=== PATIENT | male | born 1985 | race Caucasian/White ===

== ENCOUNTER 2019-11-19 15:21 | Emergency (ER) | payer OTHER ==
--- NOTE | 2019-11-19 16:35 | CT ---
CT abdomen and pelvis Technique: Multiple axial sections were obtained from above the dome of the diaphragm inferiorly through the pubic symphysis. Intravenous and oral contrast not utilized. Study has been performed as a ureteral stone protocol. Comparison: No prior abdominal imaging. Findings: Kidneys show no abnormal calcifications. No ureteral dilatation or ureteral stone is seen. No bladder calculi are seen. Other findings: Visualized lung bases show nothing acute. Noncontrast appearance of the liver and spleen appears within normal limits. Gallbladder contains no calcified gallstones. Adrenal glands show no nodule. No discrete abnormality is appreciated within the pancreas. Aorta shows no aneurysm. No retroperitoneal adenopathy or mesenteric abnormalities are seen. No pelvic mass or adenopathy is seen. Appendix not visualized with surgical material seen off the cecum. No free fluid or inflammatory change is seen. Bone window settings were reviewed which appear within normal limits for the patient's age. Impression: 1. No renal calculi, ureteral stone or ureteral dilatation. 2. Other portions of the noncontrast CT study of the abdomen and pelvis appears unremarkable. Nothing acute is appreciated. Diagnostic code #1 Study was dictated in [place] Standard Time
[2019-11-19] MEDS ORDERED: Sodium Chloride 0.9% 1,000 ML IV ONE (17:28)
[2019-11-19] MEDS ORDERED: Sodium Chloride 0.9% 10 ML Syringe FLUSH PRN (17:28)
--- NOTE | 2019-11-19 18:01 | EDM.PDOC ---
ED HPI GENERAL MEDICAL PROBLEM - General Chief Complaint: Flank Pain Stated Complaint: FLANK PAIN/VOMITING BLOOD Time Seen by Provider: 11/19/19 15:32 Source of Information: Reports: Patient History Limitations: Reports: No Limitations - History of Present Illness INITIAL COMMENTS - FREE TEXT/NARRATIVE: The patient presents with bilateral flank pain and nausea. This has been going on for a few days. He has not been wanting to eat and had no energy. He also had a fever a few days ago. He had left flank pain first and then right flank pain now. He has has no cough, sore throat, ear pain, chest pain, or shortness of breath. He has no abdominal pain. He has no dysuria or hematuria but his urine is darker. He has not been around anyone who is sick like this. Onset: Gradual Duration: Day(s): Location: Reports: Back Quality: Reports: Sharp Severity: Moderate Improves with: Reports: None Worsens with: Reports: None Associated Symptoms: Reports: Nausea/Vomiting. Denies: Cough, Fever/Chills, Headaches, Shortness of Breath Bilateral Flank Pain Score (Numeric/FACES): 8 - Related Data Allergies Allergy/AdvReac Type Severity Reaction Status Date / Time No Known Allergies Allergy Verified 11/19/19 15:34 Home Meds: Home Meds Vortioxetine Hydrobromide [Brintellix] 10 mg PO DAILY 11/19/19 [History] Past Medical History - Past Health History Medical/Surgical History: Denies Medical/Surgical History Social & Family History - Tobacco Use Smoking Status *Q: Never Smoker - Recreational Drug Use Recreational Drug Use: No ED ROS GENERAL - Review of Systems Review Of Systems: See Below Constitutional: Reports: Malaise, Weakness, Fatigue. Denies: Fever, Chills HEENT: Reports: No Symptoms Respiratory: Reports: No Symptoms Cardiovascular: Reports: No Symptoms Endocrine: Reports: No Symptoms GI/Abdominal: Reports: Nausea. Denies: Abdominal Pain, Diarrhea, Vomiting : Reports: Flank Pain (bilateral) ED EXAM, GI/ABD - Physical Exam Exam: See Below Exam Limited By: No Limitations General Appearance: Alert, No Apparent Distress Ears: Normal External Exam Nose: Normal Inspection Head: Atraumatic, Normocephalic Neck: Normal Inspection Respiratory/Chest: No Respiratory Distress, Lungs Clear, Normal Breath Sounds Cardiovascular: Regular Rate, Rhythm, No Edema, No Murmur GI/Abdominal Exam: Soft, Non-Tender, No Organomegaly, No Mass Back Exam: No: CVA Tenderness (L), CVA Tenderness (R) Course - Vital Signs Last Recorded V/S: Last Vital Signs Temp 97.8 F 11/19/19 15:31 Pulse 62 11/19/19 15:31 Resp 16 11/19/19 15:31 BP 140/83 11/19/19 15:31 Pulse Ox 99 11/19/19 15:31 - Orders/Labs/Meds Orders: Active Orders 24 hr Category Date Time Status Peripheral IV Care [RC] . DIRECTED Care 11/19/19 17:28 Active Sodium Chloride 0.9% [Normal Saline] 1,000 ml Med 11/19/19 17:28 Active IV ONETIME Sodium Chloride 0.9% [Saline Flush] Med 11/19/19 17:28 Active 10 ml FLUSH ASDIRECTED PRN Peripheral IV Insertion Adult [OM.PC] Routine Oth 11/19/19 17:28 Ordered Medication Orders Sodium Chloride (Normal Saline) 1,000 mls @ 1,000 mls/hr IV ONETIME ONE Stop: 11/19/19 18:27 Last Admin: 11/19/19 17:35 Dose: 1,000 mls/hr Sodium Chloride (Saline Flush) 10 ml FLUSH ASDIRECTED PRN PRN Reason: Keep Vein Open Last Admin: 11/19/19 17:52 Dose: 10 ml Labs: Laboratory Tests 11/19/19 11/19/19 11/19/19 Range/Units 15:47 16:00 16:00 WBC 8.56 (4.23-9.07) K/mm3 RBC 4.84 (4.63-6.08) M/mm3 Hgb 14.5 (13.7-17.5) gm/dl Hct 41.5 (40.1-51.0) % MCV 85.7 (79.0-92.2) fl MCH 30.0 (25.7-32.2) pg MCHC 34.9 (32.2-35.5) g/dl RDW Std Deviation 38.5 (35.1-43.9) fL Plt Count 166 (163-337) K/mm3 MPV 9.7 (9.4-12.3) fl Neut % (Auto) 56.1 (34.0-67.9) % Lymph % (Auto) 31.0 (21.8-53.1) % [place] % (Auto) 11.3 (5.3-12.2) % Eos % (Auto) 1.1 (0.8-7.0) Baso % (Auto) 0.1 (0.1-1.2) % Neut # (Auto) 4.81 (1.78-5.38) K/mm3 Lymph # (Auto) 2.65 (1.32-3.57) K/mm3 [place] # (Auto) 0.97 H (0.30-0.82) K/mm3 Eos # (Auto) 0.09 (0.04-0.54) K/mm3 Baso # (Auto) 0.01 (0.01-0.08) K/mm3 Sodium 142 (136-145) mEq/L Potassium 4.0 (3.5-5.1) mEq/L Chloride 105 (98-107) mEq/L Carbon Dioxide 28 (21-32) mEq/L Anion Gap 13.0 (5-15) BUN 30 H (7-18) mg/dL Creatinine 2.0 H (0.7-1.3) mg/dL Est Cr Clr Drug Dosing 52.72 mL/min Estimated GFR (MDRD) 38 (>60) mL/min BUN/Creatinine Ratio 15.0 (14-18) Glucose 96 (74-106) mg/dL Calcium 8.8 (8.5-10.1) mg/dL Total Bilirubin 0.7 (0.2-1.0) mg/dL AST 21 (15-37) U/L ALT 46 (16-63) U/L Alkaline Phosphatase 79 (46-116) U/L Total Protein 6.9 (6.4-8.2) g/dl Albumin 3.8 (3.4-5.0) g/dl Globulin 3.1 gm/dL Albumin/Globulin Ratio 1.2 (1-2) Lipase 180 (73-393) U/L Urine Color Yellow (Yellow) Urine Appearance Clear (Clear) Urine pH 6.0 (5.0-8.0) Ur Specific [place] 1.015 (1.005-1.030) Urine Protein 2+ H (Negative) Urine Glucose (UA) Negative (Negative) Urine Ketones Negative (Negative) Urine Occult Blood 1+ H (Negative) Urine Nitrite Negative (Negative) Urine Bilirubin Negative (Negative) Urine Urobilinogen 0.2 (0.2-1.0) Ur Leukocyte Esterase Negative (Negative) Urine RBC 0-5 (0-5) /hpf Urine WBC 0-5 (0-5) /hpf Ur Squamous Epith Cells 0-5 (0-5) /hpf Urine Bacteria Moderate H (FEW) /hpf Urine Mucus Not seen (FEW) /hpf Meds: Medications Generic Name Dose Route Start Last Admin Trade Name Freq PRN Reason Stop Dose Admin Sodium Chloride 1,000 mls @ 1,000 mls/hr 11/19/19 17:28 11/19/19 17:35 Normal Saline IV 11/19/19 18:27 1,000 mls/hr ONETIME ONE Administration Sodium Chloride 10 ml 11/19/19 17:28 11/19/19 17:52 Saline Flush FLUSH 10 ml ASDIRECTED PRN Administration Keep Vein Open - Re-Assessments/Exams Free Text/Narrative Re-Assessment/Exam: 11/19/19 17:57 I ordered labs, UA, influenza and a CT of his abdomen and pelvis without contrast to look for a kidney stone. His CT shows no renal calculi, ureteral stone or ureteral dilatation. Other portions of the noncontrast CT study of the abdomen and pelvis appears unremarkable. Nothing acute is appreciated. His CBC looks good. His creatinine was elevated at 2 with an elevated BUN of 30. His GFR is low at 38. He has no history of kidney problems. He says he has been drinking lots of water. His lipase is negative. His UA shows some blood. I have ordered an IV NS 1L bolus. I will then have him follow up with his primary care doctor next week and push the fluids this week. Departure - Departure Time of Disposition: 18:05 Disposition: Home, Self-Care 01 Condition: Good Clinical Impression: Viral URI, Renal insufficiency - Discharge Information *PRESCRIPTION DRUG MONITORING PROGRAM REVIEWED*: Not Applicable *COPY OF PRESCRIPTION DRUG MONITORING REPORT IN PATIENT MARYAM: Not Applicable Referrals: PCP,None [Primary Care Provider] - Kingston Alonso MD [Physician] - 1 Week Additional Instructions: Drink plenty of fluids. Follow up with your doctor within a week or follow up with Dr Alonso in our clinic. Please return if you are worse. Sepsis Event Note - Evaluation Sepsis Screening Result: No Definite Risk - Focused Exam Vital Signs: Vital Signs Temp Pulse Resp BP Pulse Ox 11/19/19 15:31 97.8 F 62 16 140/83 99 Date Exam was Performed: 11/19/19 Time Exam was Performed: 17:53 - My Orders Last 24 Hours: My Active Orders 11/19/19 17:28 Peripheral IV Care [RC] . DIRECTED Sodium Chloride 0.9% [Normal Saline] 1,000 ml IV ONETIME Sodium Chloride 0.9% [Saline Flush] 10 ml FLUSH ASDIRECTED PRN Peripheral IV Insertion Adult [OM.PC] Routine - Assessment/Plan Last 24 Hours: My Active Orders 11/19/19 17:28 Peripheral IV Care [RC] . DIRECTED Sodium Chloride 0.9% [Normal Saline] 1,000 ml IV ONETIME Sodium Chloride 0.9% [Saline Flush] 10 ml FLUSH ASDIRECTED PRN Peripheral IV Insertion Adult [OM.PC] Routine
== END 2019-11-19 18:36 | disposition home or self-care (01) ==
LOC: JD.ED 15:21
DX: N28.9 Disorder of kidney and ureter, unspecified (principal); J06.9 Acute upper respiratory infection, unspecified
CPT/HCPCS: 36415; 74176; 80053; 81001; 83690; 85025; 87804; 96360; 99284; J7030; 99283